=== PATIENT | male | born 1960 | race Caucasian/White ===

== ENCOUNTER → 2017-01-09 | Outpatient (CLI) | payer BC, OTHER ==
[2017-01-09 19:03] LABS: ALBUMIN 3.8 GM/DL (3.2-5.2); ALBUMIN/GLOBULIN RATIO 1.03 (1.00-1.93); ALKALINE PHOSPHATASE 104 U/L (45-117); ALT/SGPT 35 U/L (12-78); ANION GAP 7 MEQ/L (8-16); AST/SGOT 22 U/L (15-37); BILIRUBIN,TOTAL 0.4 MG/DL (0.2-1.0); BLOOD UREA NITROGEN 12 MG/DL (7-18); CALCIUM LEVEL 8.4 MG/DL (8.5-10.1); CARBON DIOXIDE LEVEL 30 MEQ/L (21-32); CHLORIDE LEVEL 106 MEQ/L (98-107); CHOLESTEROL LEVEL 173 MG/DL (<200); CREATININE FOR GFR 0.88 MG/DL (0.70-1.30); GLOMERULAR FILTRATION RATE > 60.0 (>56); GLUCOSE, FASTING 95 MG/DL (70-105); SODIUM LEVEL 143 MEQ/L (136-145); TOTAL PROTEIN 7.5 GM/DL (6.4-8.2); TRIGLYCERIDES LEVEL 202 MG/DL (<150)
== END ==
LOC: M LRY 09:42
PROVIDERS: ATTEND Physician Assistant Medical
DX: E78.2 Mixed hyperlipidemia (principal); R73.01 Impaired fasting glucose

== ENCOUNTER → 2017-12-30 | Outpatient (CLI) | payer BC ==
[2017-12-30 12:20] LABS: ANION GAP 6 MEQ/L (8-16); BLOOD UREA NITROGEN 15 MG/DL (7-18); CALCIUM LEVEL 9.2 MG/DL (8.5-10.1); CARBON DIOXIDE LEVEL 31 MEQ/L (21-32); CHLORIDE LEVEL 103 MEQ/L (98-107); CHOLESTEROL LEVEL 213 MG/DL (<200); CHOLESTEROL RISK RATIO 5.916 (<5); CREATININE FOR GFR 0.97 MG/DL (0.70-1.30); GLOMERULAR FILTRATION RATE > 60.0 (>56); GLUCOSE, FASTING 103 MG/DL (70-100); HDL CHOLESTEROL 36 MG/DL (>40); NON-HDL-C 177 MG/DL; POTASSIUM SERUM 4.9 MEQ/L (3.5-5.1); SODIUM LEVEL 140 MEQ/L (136-145); TRIGLYCERIDES LEVEL 280 MG/DL (<150)
[2017-12-30 12:25] LABS: ESTIMATED AVERAGE GLUCOSE 131 MG/DL (60-110); HEMOGLOBIN A1c 6.2 %
== END ==
LOC: M LRY 08:19
DX: E78.2 Mixed hyperlipidemia (principal); R73.01 Impaired fasting glucose

== ENCOUNTER → 2018-06-30 | Outpatient (CLI) | payer BC ==
[2018-06-30 12:03] LABS: ANION GAP 5 MEQ/L (8-16); BLOOD UREA NITROGEN 17 MG/DL (7-18); CALCIUM LEVEL 9.1 MG/DL (8.5-10.1); CARBON DIOXIDE LEVEL 30 MEQ/L (21-32); CHLORIDE LEVEL 105 MEQ/L (98-107); CHOLESTEROL LEVEL 196 MG/DL (<200); CREATININE FOR GFR 0.92 MG/DL (0.70-1.30); GLOMERULAR FILTRATION RATE > 60.0 (>56); GLUCOSE, FASTING 93 MG/DL (70-100); HDL CHOLESTEROL 40 MG/DL (>40); LDL CHOLESTEROL 89.6 MG/DL (<100); NON-HDL-C 156 MG/DL; POTASSIUM SERUM 4.9 MEQ/L (3.5-5.1); SODIUM LEVEL 140 MEQ/L (136-145); TRIGLYCERIDES LEVEL 332 MG/DL (<150)
[2018-06-30 12:41] LABS: ESTIMATED AVERAGE GLUCOSE 128 MG/DL (60-110); HEMOGLOBIN A1c 6.1 %
== END ==
LOC: M LRY 08:17
DX: R73.01 Impaired fasting glucose (principal); E78.2 Mixed hyperlipidemia
CPT/HCPCS: 83036

== ENCOUNTER 2020-02-22 20:53 | Emergency (ER) | payer BC ==
[~2020-02-22] VITALS: Ht 182.9 cm; Wt 100.2 kg
[2020-02-22] MEDS ORDERED: OMEP10CASR PO (21:01)
[2020-02-22] MEDS ORDERED: GABA-843 (21:01)
[2020-02-22] MEDS ORDERED: CYCL10TA (21:01)
[2020-02-22] MEDS ORDERED: SIMV40TA20 (21:01)
[2020-02-22] MEDS ORDERED: SYMB80INH (21:01)
[2020-02-22] MEDS ORDERED: PROAAER10 (21:01)
[2020-02-22 22:14] LABS: HEMATOCRIT 49.6 % (42.0-52.0); HEMOGLOBIN 16.2 g/dl (13.5-17.5); MEAN CORPUSCULAR HEMOGLOBIN 29.8 pg (27.0-33.0); MEAN CORPUSCULAR HGB CONC 32.7 g/dl (32.0-36.5); MEAN CORPUSCULAR VOLUME 91.2 fl (80.0-96.0); PLATELET COUNT, AUTOMATED 316 10^3/uL (150-450); RED BLOOD COUNT 5.44 10^6/uL (4.30-6.10); WHITE BLOOD COUNT 10.7 10^3/uL (4.0-10.0)
[2020-02-22] MEDS ORDERED: DIPH12.529 PO (22:34)
[2020-02-22 22:39] LABS: ALBUMIN 4.1 GM/DL (3.2-5.2); ALT/SGPT 44 U/L (12-78); BILIRUBIN,DIRECT < 0.1 MG/DL (0.0-0.2); BILIRUBIN,TOTAL 0.3 MG/DL (0.2-1.0); BLOOD UREA NITROGEN 16 MG/DL (7-18); CALCIUM LEVEL 9.1 MG/DL (8.5-10.1); CARBON DIOXIDE LEVEL 29 MEQ/L (21-32); CHLORIDE LEVEL 107 MEQ/L (98-107); CREATININE FOR GFR 0.97 MG/DL (0.70-1.30); GLOMERULAR FILTRATION RATE > 60.0 (>56); GLUCOSE, FASTING 98 MG/DL (70-100); LIPASE 64 U/L (73-393); POTASSIUM SERUM 3.7 MEQ/L (3.5-5.1); SODIUM LEVEL 139 MEQ/L (136-145); TOTAL PROTEIN 7.9 GM/DL (6.4-8.2)
[2020-02-22] MEDS ORDERED: MAGNESIUM CITRATE 300 ML BTL PO ONE (22:45)
[2020-02-22 22:53] VITALS: BP 129/85
--- NOTE | 2020-02-23 06:32 | REP ---
ABDOMINAL SERIES: Supine and erect views of the abdomen demonstrate no free air and no evidence for bowel obstruction. No dilated bowel loops are seen. Metallic clips are seen in the right upper quadrant. There are a few metallic clips in the pelvis. Calcific densities in the right pelvis likely represent phleboliths. There are mild degenerative changes of the spine and hips as well as sacroiliac joints. An accompanying view of the chest demonstrates no acute infiltrate. Cardiomediastinal silhouette is unremarkable. IMPRESSION: No free air or obstruction. Lungs are clear. Electronically Signed by Kuldip Campbell MD 02/23/2020 12:33 P
== END 2020-02-22 22:58 | disposition home or self-care (01) ==
LOC: M ED 20:53
DX: K59.00 Constipation, unspecified (principal); I10 Essential (primary) hypertension; K21.9 Gastro-esophageal reflux disease without esophagitis; Z79.51 Long term (current) use of inhaled steroids; Z79.899 Other long term (current) drug therapy

== ENCOUNTER → 2020-08-06 | Outpatient (CLI) | payer BC ==
[~2020-08-06] MED LIST: CYCL-707; DIPH12.529 PO; GABA-843; OMEP10CASR PO; PROAAER10; SIMV40TA20; SYMB80INH
[2020-08-06 13:14] LABS: ALBUMIN 3.8 GM/DL (3.2-5.2); ALT/SGPT 32 U/L (12-78); BILIRUBIN,TOTAL 0.6 MG/DL (0.2-1.0); BLOOD UREA NITROGEN 16 MG/DL (7-18); CALCIUM LEVEL 9.5 MG/DL (8.8-10.2); CARBON DIOXIDE LEVEL 29 MEQ/L (21-32); CHLORIDE LEVEL 105 MEQ/L (98-107); CHOLESTEROL LEVEL 219 MG/DL (<200); CHOLESTEROL RISK RATIO 5.918 (<5); CREATININE FOR GFR 0.88 MG/DL (0.70-1.30); GLOMERULAR FILTRATION RATE > 60.0 (>49); GLUCOSE, FASTING 107 MG/DL (70-100); HDL CHOLESTEROL 37 MG/DL (>40); NON-HDL-C 182 MG/DL; POTASSIUM SERUM 4.2 MEQ/L (3.5-5.1); SODIUM LEVEL 137 MEQ/L (136-145); TOTAL PROTEIN 7.7 GM/DL (6.4-8.2); TRIGLYCERIDES LEVEL 595 MG/DL (<150)
== END ==
LOC: M WUC 09:37
PROVIDERS: ATTEND Physician Assistant Medical
DX: E78.2 Mixed hyperlipidemia (principal)

== ENCOUNTER → 2021-02-25 | Outpatient (CLI) | payer BC ==
[~2021-02-25] MED LIST changes: +GABA-282; -GABA-843
[2021-02-25 10:22] LABS: CHOLESTEROL LEVEL 282 MG/DL (<200); CHOLESTEROL RISK RATIO 8.545 (<5); HDL CHOLESTEROL 33 MG/DL (>40); NON-HDL-C 249 MG/DL; TRIGLYCERIDES LEVEL 811 MG/DL (<150)
== END ==
LOC: M WUC 08:29
PROVIDERS: ATTEND Physician Assistant Medical
DX: E78.2 Mixed hyperlipidemia (principal)

== ENCOUNTER → 2023-04-12 | Outpatient (CLI) | payer BC | LOC: M SOG 07:51 | PROVIDERS: ATTEND Physician Assistant | DX: M19.042 Primary osteoarthritis, left hand (principal) ==

== ENCOUNTER → 2023-09-19 | Outpatient (REF) | payer BC | LOC: M LAB REF 16:50 | PROVIDERS: ATTEND Registered Nurse | DX: R30.0 Dysuria (principal); R35.0 Frequency of micturition ==

== ENCOUNTER → 2023-10-14 | Outpatient (CLI) | payer BC ==
[2023-10-14 08:35] LABS: BASO # 0.1 10^3/uL (0.0-0.2); BASO % 0.7 % (0.0-1.0); EOS # 0.3 10^3/uL (0.0-0.5); HEMATOCRIT 46.8 % (42.0-52.0); HEMOGLOBIN 15.1 g/dl (13.5-17.5); LYMPH # 2.2 10^3/uL (1.5-5.0); LYMPH % 27.7 % (24.0-44.0); MEAN CORPUSCULAR HGB CONC 32.3 g/dl (32.0-36.5); MONO # 0.5 10^3/uL (0.0-0.8); MONO % 6.3 % (2.0-8.0); NEUTROPHILS # 4.9 10^3/uL (1.5-8.5); NEUTROPHILS % 61.1 % (36.0-66.0); PLATELET COUNT, AUTOMATED 285 10^3/uL (150-450); RED BLOOD COUNT 5.03 10^6/uL (4.30-6.10); WHITE BLOOD COUNT 8.1 10^3/uL (4.0-10.0)
[2023-10-14 10:14] LABS: ALBUMIN 3.8 G/DL (3.2-5.2); ALKALINE PHOSPHATASE 76 U/L (46-116); ALT/SGPT 41 U/L (7.0-40); AST/SGOT 21 U/L (<34); BILIRUBIN,TOTAL 0.4 MG/DL (0.3-1.2); BLOOD UREA NITROGEN 13 MG/DL (9-23); CARBON DIOXIDE LEVEL 28 MMOL/L (20-31); CHLORIDE LEVEL 102 MMOL/L (98-107); CHOLESTEROL LEVEL 208 MG/DL (<200); CREATININE FOR GFR 0.88 MG/DL (0.70-1.30); GLOMERULAR FILTRATION RATE > 60.0 (>49); GLUCOSE, FASTING 102 MG/DL (74-106); HEMOGLOBIN A1c 5.8 % (4.0-6.0); POTASSIUM SERUM 4.3 MMOL/L (3.5-5.1); SODIUM LEVEL 139 MMOL/L (136-145); TOTAL PROTEIN 7.3 G/DL (5.7-8.2); TRIGLYCERIDES LEVEL 381 MG/DL (<150)
[2023-10-14 11:29] LABS: CALCIUM LEVEL 8.9 MG/DL (8.3-10.6); CHOLESTEROL RISK RATIO 5.27 (<5); HDL CHOLESTEROL 39.4 MG/DL (>40); LDL CHOLESTEROL 92.4 MG/DL (<100); NON-HDL-C 168.6 MG/DL
== END ==
LOC: M LAB 08:02
PROVIDERS: ATTEND Registered Nurse
DX: E78.2 Mixed hyperlipidemia (principal)

== ENCOUNTER → 2023-12-29 | Outpatient (REF) | payer BC ==
[2023-12-29 14:05] LABS: ALKALINE PHOSPHATASE 68 U/L (46-116); ALT/SGPT 42 U/L (7.0-40); AST/SGOT 29 U/L (<34); BILIRUBIN,TOTAL 0.5 MG/DL (0.3-1.2); BLOOD UREA NITROGEN 15 MG/DL (9-23); CALCIUM LEVEL 9.2 MG/DL (8.3-10.6); CARBON DIOXIDE LEVEL 29 MMOL/L (20-31); CHLORIDE LEVEL 104 MMOL/L (98-107); CHOLESTEROL LEVEL 188 MG/DL (<200); CHOLESTEROL RISK RATIO 5.02 (<5); GLOMERULAR FILTRATION RATE > 60.0 (>49); GLUCOSE, FASTING 91 MG/DL (74-106); HDL CHOLESTEROL 37.4 MG/DL (>40); LDL CHOLESTEROL 90.2 MG/DL (<100); NON-HDL-C 150.6 MG/DL; POTASSIUM SERUM 4.8 MMOL/L (3.5-5.1); SODIUM LEVEL 139 MMOL/L (136-145); TOTAL PROTEIN 7.4 G/DL (5.7-8.2); TRIGLYCERIDES LEVEL 302 MG/DL (<150)
== END ==
LOC: M LAB REF 11:47 → M LABWUC 11:47
PROVIDERS: ATTEND Registered Nurse
DX: E78.2 Mixed hyperlipidemia (principal)

== ENCOUNTER → 2024-10-01 | Outpatient (CLI) | payer BC ==
[~2024-10-01] MED LIST changes: +GABA-1172; -GABA-282
[2024-10-01 10:37] LABS: ALBUMIN 4.1 G/DL (3.2-5.2); ALKALINE PHOSPHATASE 67 U/L (40-129); ALT/SGPT 43 U/L (7.0-40); AST/SGOT 27 U/L (<34); BASO # 0.1 10^3/uL (0.0-0.2); BASO % 0.9 % (0.0-1.0); BILIRUBIN,TOTAL 0.5 MG/DL (0.3-1.2); BLOOD UREA NITROGEN 14 MG/DL (9-23); CALCIUM LEVEL 9.5 MG/DL (8.3-10.6); CARBON DIOXIDE LEVEL 30 MMOL/L (20-31); CHLORIDE LEVEL 106 MMOL/L (98-107); CHOLESTEROL LEVEL 178 MG/DL (<200); CHOLESTEROL RISK RATIO 4.39 (<5); CREATININE FOR GFR 0.87 MG/DL (0.70-1.30); EOS # 0.3 10^3/uL (0.0-0.5); EOS % 3.5 % (0.0-3.0); GLOMERULAR FILTRATION RATE > 60.0 (>49); GLUCOSE, FASTING 101 MG/DL (74-106); HDL CHOLESTEROL 40.5 MG/DL (>40); HEMATOCRIT 49.9 % (42.0-52.0); HEMOGLOBIN 16.1 g/dl (13.5-17.5); LDL CHOLESTEROL 83.5 MG/DL (<100); LYMPH # 2.8 10^3/uL (1.5-5.0); LYMPH % 34.6 % (24.0-44.0); MEAN CORPUSCULAR HEMOGLOBIN 30.8 pg (27.0-33.0); MEAN CORPUSCULAR HGB CONC 32.3 g/dl (32.0-36.5); MEAN CORPUSCULAR VOLUME 95.6 fl (80.0-96.0); MONO # 0.5 10^3/uL (0.0-0.8); MONO % 6.8 % (2.0-8.0); NEUTROPHILS # 4.3 10^3/uL (1.5-8.5); NEUTROPHILS % 53.8 % (36.0-66.0); NON-HDL-C 137.5 MG/DL; PLATELET COUNT, AUTOMATED 316 10^3/uL (150-450); POTASSIUM SERUM 4.7 MMOL/L (3.5-5.1); RED BLOOD COUNT 5.22 10^6/uL (4.30-6.10); SODIUM LEVEL 141 MMOL/L (136-145); TOTAL PROTEIN 7.9 G/DL (5.7-8.2); TRIGLYCERIDES LEVEL 270 MG/DL (<150)
[2024-10-01 10:51] LABS: HEMOGLOBIN A1c 5.8 % (4.0-6.0)
== END ==
LOC: M WUC 08:12
PROVIDERS: ATTEND Registered Nurse
DX: E78.2 Mixed hyperlipidemia (principal)

== ENCOUNTER 2024-11-05 10:19 | Day surgery (SDC) | payer BC ==
[~2024-11-05] VITALS: Ht 175.3 cm; Wt 99.8 kg
[~2024-11-05 10:19] MED LIST changes: +ALBU8.5H INH; +FENO134C20 PO; +LIDOCAINE W/EPINEPHRINE 1% 20ML VIAL XX ONE; +OMEP-173 PO; -SIMV40TA20; +SIMV40TA20 PO; +SODIUM BICARBONATE 8.4% INJ 50MEQ 50ML VIAL XX ONE; -SYMB80INH; +SYMB80INH INH
[2024-11-05 12:41] VITALS: BP 134/76; TEMP 96.6; O2SAT 97
== END 2024-11-05 12:45 | disposition home or self-care (01) ==
LOC: M SDC 10:19
PROVIDERS: ATTEND Orthopaedic Surgery Hand Surgery
DX: M65.332 Trigger finger, left middle finger (principal); J45.909 Unspecified asthma, uncomplicated; E78.00 Pure hypercholesterolemia, unspecified; K21.9 Gastro-esophageal reflux disease without esophagitis; Z79.899 Other long term (current) drug therapy; Z79.51 Long term (current) use of inhaled steroids; Z72.0 Tobacco use; Z90.49 Acquired absence of other specified parts of digestive tract

== ENCOUNTER → 2025-09-10 | Outpatient (CLI) | payer BC ==
[~2025-09-10] MED LIST changes: -LIDOCAINE W/EPINEPHRINE 1% 20ML VIAL XX ONE; -SODIUM BICARBONATE 8.4% INJ 50MEQ 50ML VIAL XX ONE
[2025-09-10 12:43] LABS: BASO # 0.1 10^3/uL (0.0-0.2); BASO % 0.7 % (0.0-1.0); EOS # 0.4 10^3/uL (0.0-0.5); EOS % 3.5 % (0.0-3.0); LYMPH # 2.9 10^3/uL (1.5-5.0); LYMPH % 29.4 % (24.0-44.0); MONO # 0.8 10^3/uL (0.0-0.8); MONO % 7.7 % (2.0-8.0); NEUTROPHILS # 5.8 10^3/uL (1.5-8.5); NEUTROPHILS % 58.4 % (36.0-66.0); PLATELET COUNT, AUTOMATED 353 10^3/uL (150-450)
[2025-09-10 13:10] LABS: ALT/SGPT 44 U/L (7.0-40); AST/SGOT 36 U/L (<34); CALCIUM LEVEL 9.5 MG/DL (8.3-10.6); CARBON DIOXIDE LEVEL 27 MMOL/L (20-31); CHLORIDE LEVEL 104 MMOL/L (98-107); CHOLESTEROL LEVEL 150 MG/DL (<200); CHOLESTEROL RISK RATIO 3.19 (<5); CREATININE FOR GFR 0.90 MG/DL (0.70-1.30); GLOMERULAR FILTRATION RATE > 90.0 (>49); LDL CHOLESTEROL 63.0 MG/DL (<100); NON-HDL-C 103.0 MG/DL; POTASSIUM SERUM 4.8 MMOL/L (3.5-5.1); SODIUM LEVEL 141 MMOL/L (136-145); TRIGLYCERIDES LEVEL 200 MG/DL (<150)
[2025-09-10 13:12] LABS: ESTIMATED AVERAGE GLUCOSE 126.0 MG/DL (60-110)
== END ==
LOC: M WUC 08:28
PROVIDERS: ATTEND Registered Nurse
DX: E78.2 Mixed hyperlipidemia (principal)